=== PATIENT | male | born 1950 | race Caucasian/White ===

== ENCOUNTER → 2020-12-18 | Day surgery (SDC) | payer MEDICARE, OTHER ==
[~2020-12-18] MED LIST: CATAPRES0.2 MG PO; CLARITIN10 M2 PO; COREG25 M1 PO; FISH OIL 1,0001 EAC9 PO; FLONASE 0.05%50 MCG NARES; HYDRALAZINE 2525 M1 PO; LASIX 80 MG TAB80 MG PO; LOSARTAN POTASS50 MG PO; MINIMED RESERV1 EAC1 SUBQ; NORCO5 PO; NORVASC10 MG PO; OMNIPOD DASH1 EACH SUBQ; ROSUVASTATIN CA10 MG PO; SUPER THERAVIT1 EACH PO; TRIAMCINOLONE 080 G3 TOP; VITAMIN D250 MC1 PO; [UNRECOGNIZED DRUG - OTHER] SUBQ
--- NOTE | ~2020-12-18 | OP ---
[facility] [address] [place] [address] OPERATIVE REPORT Name: SHANNON PAUL Room: [facility].#: [id number] Admission: 12/18/20 Attend Phys: Jerry Rico Discharge: Date of : 52 Report #: [id number] THIS REPORT FOR: cc: Arun Chapin MD, Jeffrey W. MD Patterson, Jonathan D. MD ~ cc: Wilberto Vasquez MD DATE OF SURGERY: 12/18/2020 PREOPERATIVE DIAGNOSIS: End-stage renal disease. POSTOPERATIVE DIAGNOSIS: End-stage renal disease. OPERATIONS: 1. Laparoscopic placement of tunneled intraperitoneal catheter (presternal catheter). 2. Laparoscopic omentopexy. SURGEON: Jerry Rico MD ANESTHESIA: General. ESTIMATED BLOOD LOSS: Minimal. SPECIMENS: None. DESCRIPTION OF PROCEDURE: After informed consent was obtained, the patient was brought to the operating room and placed supine. SCDs were placed and working, preoperative antibiotics were administered, general anesthesia was induced. The abdomen was prepped and draped in the usual sterile fashion. A 5 mm incision was made in the left upper quadrant. A 5 mm trocar was placed under direct vision. Pneumoperitoneum was established. A 5 mm trocar was inserted in the left lower quadrant under direct vision. I grasped the omentum and took it up to the right upper quadrant. Then, using a 2-0 Vicryl suture with a suture passer, passed it through the fascia and then through the omentum and then back out through the fascia and tied it down, thereby performing the omentopexy. An 8 mm trocar was placed in the left rectus sheath above the umbilicus. The Covidien presternal catheter was inserted. The cuff was then brought up to the rectus sheath. I then desufflated the abdomen. A counterincision was made near the xiphoid and the catheter was then tunneled to this area. It was connected to the sternal portion using the metal connector in the kit. These were tied down with two 2-0 Prolene sutures. The catheter was then tunneled to the left chest. The catheter flushed easily with heparinized saline. It drained easily as well. [place] [address] OPERATIVE REPORT Name: SHANNON PAUL Room: [facility]#: [id number] Admission: 12/18/20 Attend Phys: Jerry Rico Discharge: Date of : 52 Report #: [id number] under direct vision. The skin was closed with 4-0 Monocryl. Incisions were dressed with Steri-Strips and occlusive dressing. COMPLICATIONS: None. DISPOSITION: The patient was taken to recovery in satisfactory condition. By: 0636 [id number] Rico MD /sukhdev
[2020-12-18 06:31] LABS: HEMATOCRIT 29.1 % (42.0-52.0); HEMOGLOBIN 9.7 gm/dL (14.0-18.0); MCH 30.2 pg (26.0-34.0); MCHC 33.4 g/dL (28.0-37.0); MCV 90.5 fL (80.0-100.0); MPV 7.2 fl. (7.2-11.1); RBC 3.21 mil/uL (4.50-6.00); WBC 9.5 thou/uL (4.0-11.0)
[2020-12-18 06:40] LABS: CALCIUM 11.6 mg/dL (8.5-10.1); CREATININE 6.1 mg/dL (0.6-1.3); POTASSIUM 3.7 mmol/L (3.5-5.1)
--- NOTE | 2020-12-18 10:17 | EKG ---
[place] [address] ELECTROCARDIOGRAM REPORT Name: SHANNON PAUL Room: [facility]#: [id number] Admission: 12/18/20 Attend Phys: Jerry Ferrari Discharge: Date of : 52 Date of Service: 12/18/20 0736 Report #: [id number] THIS REPORT FOR: //name// [facility] Test Date: 2020-12-18 Test Time: 07:36:36 Pat Name: SHANNON PAUL Department: Room: Gender: Clinical Evaluator: ANDREI : 1950 Requested By: Jerry Rico Order Number: [id number] MD: Eriberto Gonzalez Measurements Intervals [place] Rate: 54 P: NE: QRS: 13 QRSD: 99 T: 1 QT: 458 QTc: 435 Interpretive Statements sinus bradycardia Borderline T abnormalities, inferior leads No previous ECG available for comparison Electronically Signed On 12-18-2020 10:17:16 CDT by Eriberto Gonzalez [email or web address] <ELECTRONICALLY SIGNED> By: Eriberto Gonzalez MD, [facility] 12/18/20 1017 Eriberto Gonzalez MD, [facility] /EPI
== END | disposition home or self-care (01) ==
LOC: M.SUR 06:13
PROVIDERS: ATTEND Surgery
DX: I12.0 Hypertensive chronic kidney disease with stage 5 chronic kidney disease or end stage renal disease (principal); E11.22 Type 2 diabetes mellitus with diabetic chronic kidney disease; N18.6 End stage renal disease; Z20.822 Contact with and (suspected) exposure to COVID-19; Z98.890 Other specified postprocedural states; Z79.899 Other long term (current) drug therapy